=== PATIENT | female | born 1945 | race Caucasian/White ===

== ENCOUNTER → 2017-01-27 | Day surgery (SDC) | payer MEDICARE, OTHER ==
[~2017-01-27] VITALS: Ht 170.2 cm; Wt 53.3 kg
[2017-01-27 08:29] LABS: HCT 45.4 % (37.0-47.0); HGB 15.8 g/dl (12.5-16.0); MCH 31.1 pg (25.0-31.0); MCHC 34.8 g/dL (32.0-36.0); MCV 89.4 fL (78.0-100.0); MPV 9.6 fL (6.0-9.5); RBC 5.08 M/uL (4.20-5.40); RDW 13.2 % (11.5-14.0); WBC 5.1 K/uL (4.0-10.5)
[2017-01-27 09:08] LABS: ALBUMIN 4.3 g/dL (3.4-4.8); BILIRUBIN - TOTAL 0.9 mg/dL (0.1-1.0); CREATININE 0.8 mg/dL (0.5-1.0); GLOBULIN (CALCULATION) 2.9 g/dL (2.2-4.2); POTASSIUM 4.6 mmol/L (3.5-5.1); TOTAL PROTEIN 7.2 g/dL (6.4-8.3)
== END | disposition home or self-care (01) ==
LOC: FAS 07:54
PROVIDERS: Surgery
DX: Z12.11 Encounter for screening for malignant neoplasm of colon (principal); I10 Essential (primary) hypertension; E78.5 Hyperlipidemia, unspecified; F41.9 Anxiety disorder, unspecified; F17.210 Nicotine dependence, cigarettes, uncomplicated; M81.0 Age-related osteoporosis without current pathological fracture; B35.1 Tinea unguium; Z86.010 Personal history of colon polyps; Z80.3 Family history of malignant neoplasm of breast; Z83.3 Family history of diabetes mellitus; Z82.3 Family history of stroke; Z79.899 Other long term (current) drug therapy; Z98.890 Other specified postprocedural states
CPT/HCPCS: 36415; 80053; J2704